=== PATIENT | male | born 1965 | race Hispanic/Latino ===

== ENCOUNTER 2018-11-29 11:18 | Inpatient (IN) | payer MEDICARE ==
[2018-11-29] MEDS ORDERED: ROBAXIN PO PRN (12:14)
[2018-11-29] MEDS ORDERED: VISTARIL IM PRN (12:14)
[2018-11-29] MEDS ORDERED: VISTARIL PO PRN (12:14)
[2018-11-29] MEDS ORDERED: ZOFRAN ODT PO PRN (12:14)
[2018-11-29] MEDS ORDERED: IBUPROFEN PO PRN (12:14)
[2018-11-29] MEDS ORDERED: REQUIP PO PRN (12:14)
[2018-11-29] MEDS ORDERED: SENOKOT PO PRN (12:14)
[2018-11-29] MEDS ORDERED: IMODIUM PO PRN (12:14)
[2018-11-29] MEDS ORDERED: DULCOLAX PR PRN (12:14)
[2018-11-29] MEDS ORDERED: TYLENOL PO PRN (12:14)
[2018-11-29] MEDS ORDERED: ALUM-MAG HYDROX-SIMETH 200-200-20MG/5ML PO PRN (12:14)
[2018-11-29] MEDS ORDERED: HABITROL TD PRN (12:14)
[2018-11-29] MEDS ORDERED: ATIVAN IV PRN (12:14)
[2018-11-29] MEDS ORDERED: ZOFRAN IV PRN (12:14)
[2018-11-29] MEDS ORDERED: INFUVITE IV ONE (12:51)
[2018-11-29] MEDS ORDERED: FOLVITE IV ONE (12:51)
[2018-11-29] MEDS ORDERED: LACTATED RINGERS IV ONE (12:51)
[2018-11-29] MEDS: NACL 0.9% 1000 ML 1,000 ML IV SCH (15:40)
[2018-11-29] MEDS: CATAPRES PO SCH ×3 (15:40→23:00)
[2018-11-29] MEDS: ATIVAN PO SCH ×3 (15:40→22:59)
[2018-11-29 15:53] LABS: Hematocrit 44.6 % (35.5-45.6); Hemoglobin 15.5 gm/dl (11.8-15.2); Mean Corpuscular HGB Conc 35 % (32-34); Mean Corpuscular Volume 92 fl (84-94); Platelet Count 113 K/mm3 (140-440); Red Blood Count 4.84 M/mm3 (3.65-5.03); Red Cell Distribution Width 13.6 % (13.2-15.2)
[2018-11-29 16:03] LABS: INR 1.03 (0.87-1.13)
[2018-11-29 16:14] LABS: Albumin 3.9 g/dL (3.9-5); Calcium 8.9 mg/dL (8.4-10.2)
[2018-11-29 16:25] LABS: Bilirubin,Urine NEG (Negative); Blood,Urine NEG (Negative); Color,Urine Yellow (Yellow); Hyaline Casts,Urine 6 /LPF; Mucus,Urine 3+ /HPF; Urobilinogen,Urine < 2.0 mg/dL (<2.0)
[2018-11-29 16:42] LABS: Amphetamine Screen,Urine PRESUMPTIVE NEGATIVE; Benzodiazepines Screen,Urine PRESUMPTIVE NEGATIVE; Opiate Screen,Urine PRESUMPTIVE NEGATIVE
[2018-11-29 18:02] LABS: Cannabinoid Screen,Urine PRESUMPTIVE POSITIVE; Cocaine Screen,Urine PRESUMPTIVE POSITIVE; Methadone Screen,Urine PRESUMPTIVE POSITIVE
[2018-11-29] MEDS: DESYREL PO SCH (22:58)
--- NOTE | 2018-11-30 01:51 | History and Physical Report ---
History of Present Illness Date of examination: 11/29/18 Date of admission: 11/29/18 14:13 Chief complaint: Wants help with Cocaine dependence History of present illness: 52 y/o male comes in for help with cocaine dependence.Patientyelena medrano doing Cocaine regularly for last 20 years Has been doing Gram a day Has been nervous of late and anxious.Wants to stop Cocaine dependence.No chest pain.No palpitations. Past History Past Medical History: other (DVT PN Anticoagulation) Past Surgical History: cholecystectomy, hernia repair Social history: smoking, other (Cocaine dependence) Family history: hypertension Medications and Allergies Allergies Allergy/AdvReac Type Severity Reaction Status Date / Time No Known Allergies Allergy Verified 11/29/18 12:11 Home Medications Medication Instructions Recorded Confirmed Last Taken Type Amoxicillin [Trimox CAP] 500 mg PO BID 11/29/18 11/29/18 11/27/18 10:00 History Gabapentin [Neurontin] 600 mg PO Q8H 11/29/18 11/29/18 11/27/18 21:00 History QUEtiapine [SEROquel] 200 mg PO DAILY 11/29/18 11/29/18 11/27/18 21:00 History Warfarin [Coumadin] 5 mg PO QDAY 11/29/18 11/29/18 11/27/18 21:00 History Active Meds: Active Medications Acetaminophen (Tylenol) 500 mg PO Q4H PRN PRN Reason: Temp > 100.4 Al Hydrox/Mg Hydrox/Simethicone (Alum-Mag Hydrox-Simeth [phone]/5ml) 30 ml PO Q6H PRN PRN Reason: Dyspepsia Bisacodyl (Dulcolax) 10 mg AK QDAY PRN PRN Reason: Bowel Movement Clonidine HCl (Catapres) 0.1 mg PO Q4HR [facility] Last Admin: 11/29/18 23:00 Dose: Not Given Documented by: Folic Acid (Folvite) 1 mg PO QDAY BENNY Hydroxyzine HCl (Vistaril) 50 mg IM Q6H PRN PRN Reason: Breakthrough Anxiety Hydroxyzine Pamoate (Vistaril) 50 mg PO Q6H PRN PRN Reason: Anxiety Mild Sodium Chloride (Nacl 0.9% 1000 Ml) 1,000 mls @ 75 mls/hr IV DIRECT BENNY Last Admin: 11/29/18 15:40 Dose: 75 mls/hr Documented by: Ibuprofen (Motrin) 600 mg PO Q8H PRN PRN Reason: Pain, Mild (1-3) Loperamide HCl (Imodium) 2 mg PO Q8H PRN PRN Reason: Diarrhea Lorazepam (Ativan) 1 mg PO Q4HR [facility] Stop: 11/30/18 10:01 Last Admin: 11/29/18 22:59 Dose: 1 mg Documented by: Lorazepam (Ativan) 2 mg IV PRN PRN PRN Reason: Seizures Lorazepam (Ativan) 1 mg PO Q6HR [facility] Stop: 12/01/18 06:01 Lorazepam (Ativan) 1 mg PO Q8HR [facility] Stop: 12/01/18 22:01 Methocarbamol (Robaxin) 750 mg PO Q6H PRN PRN Reason: Muscle Ache Multivitamins (Theragran Tab) 1 each PO QDAY [facility] Nicotine (Habitrol) 21 mg TD QDAY PRN PRN Reason: Smoking Cessation Ondansetron HCl (Zofran) 4 mg IV Q6H PRN PRN Reason: Moderat/Severe Nausea/Vomiting Ondansetron HCl (Zofran Odt) 4 mg PO Q6H PRN PRN Reason: Mild / Nausea And Vomiting Ropinirole HCl (Requip) 0.5 mg PO Q12H PRN PRN Reason: Restless Legs Senna (Senokot) 17.2 mg PO QHS PRN PRN Reason: Constipation Thiamine HCl (Vitamin B-1) 100 mg PO QDAY [facility] Trazodone HCl (Desyrel) 50 mg PO QHS [facility] Last Admin: 11/29/18 22:58 Dose: 50 mg Documented by: Review of Systems All systems: negative Constitutional: weight loss Ears, nose, mouth and throat: deferred Cardiovascular: palpitations, shortness of breath, no orthopnea Respiratory: no cough, no cough with sputum, no excessive sputum Genitourinary Male: no dysuria, no hematuria Rectal: no pain Musculoskeletal: no neck stiffness, no neck pain, no shooting arm pain, no arm numbness/tingling Integumentary: no rash, no pruritis, no redness, no sores, no wounds, no jaundice Neurological: no head injury, no transient paralysis, no paralysis Psychiatric: anxiety, hypersomnia Endocrine: no cold intolerance, no heat intolerance, no polyphagia Allergic/Immunologic: no urticaria, no allergic rhinitis, no wheezing Exam - Constitutional Vitals: Temp Pulse Resp BP Pulse Ox 98.0 F 58 L 18 79/47 100 11/30/18 00:16 11/29/18 23:00 11/30/18 00:16 11/30/18 00:16 11/29/18 19:18 General appearance: Present: no acute distress, well-nourished - EENT Eyes: Present: PERRL ENT: hearing intact, clear oral mucosa - Neck Neck: Present: supple, normal ROM - Respiratory Respiratory effort: normal Respiratory: bilateral: CTA - Cardiovascular Heart rate: 78 Rhythm: regular Heart Sounds: Present: S1 & S2. Absent: rub, click - Extremities Extremities: no ischemia, pulses intact, pulses symmetrical, No edema Peripheral Pulses: within normal limits - Abdominal General gastrointestinal: Present: soft, non-tender, non-distended, normal bowel sounds Male genitourinary: Present: normal - Integumentary Integumentary: Present: clear, warm, dry - Musculoskeletal Musculoskeletal: gait normal, strength equal bilaterally - Psychiatric Psychiatric: appropriate mood/affect, intact judgment & insight - Neurologic Neurologic: CNII-XII intact, moves all extremities Results - Labs CBC & Chem 7: 11/29/18 15:20 11/29/18 15:20 Labs: Laboratory Last Values WBC 6.2 K/mm3 (4.5-11.0) 11/29/18 15:20 RBC 4.84 M/mm3 (3.65-5.03) 11/29/18 15:20 Hgb 15.5 gm/dl (11.8-15.2) H 11/29/18 15:20 Hct 44.6 % (35.5-45.6) 11/29/18 15:20 MCV 92 fl (84-94) 11/29/18 15:20 MCH 32 pg (28-32) 11/29/18 15:20 MCHC 35 % (32-34) H 11/29/18 15:20 RDW 13.6 % (13.2-15.2) 11/29/18 15:20 Plt Count 113 K/mm3 (140-440) L 11/29/18 15:20 PT 14.1 Sec. (12.2-14.9) 11/29/18 15:20 INR 1.03 (0.87-1.13) 11/29/18 15:20 Sodium 142 mmol/L (137-145) 11/29/18 15:20 Potassium 4.1 mmol/L (3.6-5.0) 11/29/18 15:20 Chloride 103.3 mmol/L (98-107) 11/29/18 15:20 Carbon Dioxide 30 mmol/L (22-30) 11/29/18 15:20 Anion Gap 13 mmol/L 11/29/18 15:20 BUN 16 mg/dL (9-20) 11/29/18 15:20 Creatinine 1.3 mg/dL (0.8-1.5) 11/29/18 15:20 Estimated GFR 58 ml/min 11/29/18 15:20 BUN/Creatinine Ratio 12 % 11/29/18 15:20 Glucose 111 mg/dL (75-100) H 11/29/18 15:20 Calcium 8.9 mg/dL (8.4-10.2) 11/29/18 15:20 Total Bilirubin 0.50 mg/dL (0.1-1.2) 11/29/18 15:20 AST 12 units/L (5-40) 11/29/18 15:20 ALT 17 units/L (7-56) 11/29/18 15:20 Alkaline Phosphatase 64 units/L (35-129) 11/29/18 15:20 Total Protein 6.4 g/dL (6.3-8.2) 11/29/18 15:20 Albumin 3.9 g/dL (3.9-5) 11/29/18 15:20 Albumin/Globulin Ratio 1.6 % 11/29/18 15:20 Amylase 29 units/L (27-131) 11/29/18 15:20 Lipase 21 units/L (13-60) 11/29/18 15:20 Urine Color Yellow (Yellow) 11/29/18 16:02 Urine Turbidity Slightly-cloudy (Clear) 11/29/18 16:02 Urine pH 5.0 (5.0-7.0) 11/29/18 16:02 Ur Specific [place] 1.025 (1.003-1.030) 11/29/18 16:02 Urine Protein 30 mg/dl mg/dL (Negative) 11/29/18 16:02 Urine Glucose (UA) Neg mg/dL (Negative) 11/29/18 16:02 Urine Ketones Neg mg/dL (Negative) 11/29/18 16:02 Urine Blood Neg (Negative) 11/29/18 16:02 Urine Nitrite Neg (Negative) 11/29/18 16:02 Urine Bilirubin Neg (Negative) 11/29/18 16:02 Urine Urobilinogen < 2.0 mg/dL (<2.0) 11/29/18 16:02 Ur Leukocyte Esterase Neg (Negative) 11/29/18 16:02 Urine WBC (Auto) 7.0 /HPF (0.0-6.0) H 11/29/18 16:02 Urine RBC (Auto) 2.0 /HPF (0.0-6.0) 11/29/18 16:02 U Epithel Cells (Auto) < 1.0 /HPF (0-13.0) 11/29/18 16:02 Hyaline Casts 6 /LPF 11/29/18 16:02 Urine Mucus 3+ /HPF 11/29/18 16:02 Urine Opiates Screen Presumptive negative 11/29/18 15:50 Urine Methadone Screen Presumptive positive 11/29/18 15:50 Ur Barbiturates Screen Presumptive negative 11/29/18 15:50 Ur Phencyclidine Scrn Presumptive negative 11/29/18 15:50 Ur Amphetamines Screen Presumptive negative 11/29/18 15:50 U Benzodiazepines Scrn Presumptive negative 11/29/18 15:50 Urine Cocaine Screen Presumptive positive 11/29/18 15:50 U Marijuana (THC) Screen Presumptive positive 11/29/18 15:50 Drugs of Abuse Note Disclamer 11/29/18 15:50 Plasma/Serum Alcohol < 0.01 % (0-0.07) 11/29/18 15:20 Short CBC 11/29/18 Range/Units 15:20 WBC 6.2 (4.5-11.0) K/mm3 Hgb 15.5 H (11.8-15.2) gm/dl Hct 44.6 (35.5-45.6) % Plt Count 113 L (140-440) K/mm3 BMP 11/29/18 15:20 Sodium 142 Potassium 4.1 Chloride 103.3 Carbon Dioxide 30 BUN 16 Creatinine 1.3 Glucose 111 H Calcium 8.9 Liver Function 11/29/18 Range/Units 15:20 Total Bilirubin 0.50 (0.1-1.2) mg/dL AST 12 (5-40) units/L ALT 17 (7-56) units/L Alkaline Phosphatase 64 (35-129) units/L Albumin 3.9 (3.9-5) g/dL Urine 11/29/18 Range/Units 16:02 Urine Color Yellow (Yellow) Urine pH 5.0 (5.0-7.0) Ur Specific [place] 1.025 (1.003-1.030) Urine Protein 30 mg/dl (Negative) mg/dL Urine Glucose (UA) Neg (Negative) mg/dL Assessment and Plan Advance Directives: Yes (Full code) VTE prophylaxis?: Chemical Plan of care discussed with patient/family: Yes - Patient Problems (1) Cocaine dependence Current Visit: Yes Status: Chronic Qualifiers: Substance use status: in withdrawal Qualified Code(s): F14.23 - Cocaine dependence with withdrawal Plan to address problem: Patient initiated on Cocaine dependence Med Stabilization orders including Lo razepm taper from 1 mg po q4 on day 1 then Q6 on day 2 and then q8 on day 3 (2) Bipolar 1 disorder Current Visit: Yes Status: Chronic Plan to address problem: Cont Seroquel (3) Peripheral neuropathy Current Visit: Yes Status: Chronic Qualifiers: Peripheral neuropathy type: polyneuropathy, unspecified Qualified Code(s): G62.9 - Polyneuropathy, unspecified Plan to address problem: Cont Gabapentin (4) Anticoagulant long-term use Current Visit: Yes Status: Chronic Plan to address problem: Patient uses Coumadin for DVT from long duration ago.Coumadin maybe stopped.COumadin not resumed (5) DVT prophylaxis Current Visit: Yes Status: Acute Plan to address problem: On Lovenox and GI prophylaxis
[2018-11-30] MEDS: ATIVAN PO SCH ×5 (02:58→23:11)
[2018-11-30] MEDS: CATAPRES PO SCH ×6 (03:01→21:32)
[2018-11-30] MEDS: NACL 0.9% 1000 ML 1,000 ML IV SCH (05:56)
[2018-11-30] MEDS ORDERED: NON-FORMULARY (Gabapentin [Neurontin] 600 MG) PO SCH (06:00)
[2018-11-30] MEDS: FOLVITE PO SCH (09:08)
[2018-11-30] MEDS: VITAMIN B-1 PO SCH (09:08)
[2018-11-30] MEDS: PEPCID PO SCH ×2 (09:08→21:32)
[2018-11-30] MEDS: THERAGRAN Tab PO SCH (09:08)
--- NOTE | 2018-11-30 09:42 | Progress Note ---
Assessment and Plan Assessment and plan: 52 year male with hx of cocain dependance for 20 years, doing about a gram a day. UDS was indicative of Cocain, THC and Opioids. He is currently enrolled on the [facility] protocol for management. (1) Cocaine dependence Current Visit: Yes Status: Chronic Qualifiers: Substance use status: in withdrawal Qualified Code(s): F14.23 - Cocaine dependence with withdrawal Plan to address problem: Patient initiated on Cocaine dependence Med Stabilization orders including Lorazepm taper from 1 mg po q4 on day 1 then Q6 on day 2 and then q8 on day 3 Method travel likely secondary to mild withdrawal will continue to monitor. (2) Bipolar 1 disorder Current Visit: Yes Status: Chronic Plan to address problem: Cont Seroquel (3) Peripheral neuropathy Current Visit: Yes Status: Chronic Qualifiers: Peripheral neuropathy type: polyneuropathy, unspecified Qualified Code(s): G62.9 - Polyneuropathy, unspecified Plan to address problem: Cont Gabapentin (4) Anticoagulant long-term use Current Visit: Yes Status: Chronic Plan to address problem: Patient uses Coumadin for DVT from long duration ago.Coumadin maybe stopped. COumadin not resumed (5) DVT prophylaxis Current Visit: Yes Status: Acute Plan to address problem: On Lovenox and GI prophylaxis History Interval history: Patient is examined this morning resting comfortably in no acute distress, still some shaking with diaphoresis of daily improving. Hospitalist Physical - Physical exam Narrative exam: VITAL SIGNS: Reviewed. GENERAL: The patient appeared well nourished and normally developed. Vital signs as documented. HEAD: No signs of head trauma. EYES: Pupils are equal. Extraocular motions intact. EARS: Hearing grossly intact. MOUTH: Oropharynx is normal. NECK: No adenopathy, no JVD. CHEST: Chest with clear breath sounds bilaterally. No wheezes, rales, or rhonchi. CARDIAC: Regular rate and rhythm. S1 and S2, without murmurs, gallops, or rubs. VASCULAR: No Edema. Peripheral pulses normal and equal in all extremities. ABDOMEN: Soft, without detectable tenderness. No sign of distention. No rebound or guarding, and no masses palpated. Bowel Sounds normal. MUSCULOSKELETAL: Good range of motion of all major joints. Extremities without clubbing, cyanosis or edema. NEUROLOGIC EXAM: Alert and oriented x 3. No focal sensory or strength deficits . Speech normal. Follows commands. PSYCHIATRIC: Mood normal. There was some mild tremors. SKIN: No rash or lesions. - Constitutional Vitals: Temp Pulse Resp BP Pulse Ox 97.4 F L 58 L 18 101/64 98 11/30/18 08:01 11/30/18 09:09 11/30/18 08:01 11/30/18 09:09 11/30/18 08:01 General appearance: Present: no acute distress, well-nourished Results - Labs CBC & Chem 7: 11/29/18 15:20 11/29/18 15:20 Labs: Laboratory Last Values WBC 6.2 K/mm3 (4.5-11.0) 11/29/18 15:20 RBC 4.84 M/mm3 (3.65-5.03) 11/29/18 15:20 Hgb 15.5 gm/dl (11.8-15.2) H 11/29/18 15:20 Hct 44.6 % (35.5-45.6) 11/29/18 15:20 MCV 92 fl (84-94) 11/29/18 15:20 MCH 32 pg (28-32) 11/29/18 15:20 MCHC 35 % (32-34) H 11/29/18 15:20 RDW 13.6 % (13.2-15.2) 11/29/18 15:20 Plt Count 113 K/mm3 (140-440) L 11/29/18 15:20 PT 14.1 Sec. (12.2-14.9) 11/29/18 15:20 INR 1.03 (0.87-1.13) 11/29/18 15:20 Sodium 142 mmol/L (137-145) 11/29/18 15:20 Potassium 4.1 mmol/L (3.6-5.0) 11/29/18 15:20 Chloride 103.3 mmol/L (98-107) 11/29/18 15:20 Carbon Dioxide 30 mmol/L (22-30) 11/29/18 15:20 Anion Gap 13 mmol/L 11/29/18 15:20 BUN 16 mg/dL (9-20) 11/29/18 15:20 Creatinine 1.3 mg/dL (0.8-1.5) 11/29/18 15:20 Estimated GFR 58 ml/min 11/29/18 15:20 BUN/Creatinine Ratio 12 % 11/29/18 15:20 Glucose 111 mg/dL (75-100) H 11/29/18 15:20 Calcium 8.9 mg/dL (8.4-10.2) 11/29/18 15:20 Total Bilirubin 0.50 mg/dL (0.1-1.2) 11/29/18 15:20 AST 12 units/L (5-40) 11/29/18 15:20 ALT 17 units/L (7-56) 11/29/18 15:20 Alkaline Phosphatase 64 units/L (35-129) 11/29/18 15:20 Total Protein 6.4 g/dL (6.3-8.2) 11/29/18 15:20 Albumin 3.9 g/dL (3.9-5) 11/29/18 15:20 Albumin/Globulin Ratio 1.6 % 11/29/18 15:20 Amylase 29 units/L (27-131) 11/29/18 15:20 Lipase 21 units/L (13-60) 11/29/18 15:20 Urine Color Yellow (Yellow) 11/29/18 16:02 Urine Turbidity Slightly-cloudy (Clear) 11/29/18 16:02 Urine pH 5.0 (5.0-7.0) 11/29/18 16:02 Ur Specific [place] 1.025 (1.003-1.030) 11/29/18 16:02 Urine Protein 30 mg/dl mg/dL (Negative) 11/29/18 16:02 Urine Glucose (UA) Neg mg/dL (Negative) 11/29/18 16:02 Urine Ketones Neg mg/dL (Negative) 11/29/18 16:02 Urine Blood Neg (Negative) 11/29/18 16:02 Urine Nitrite Neg (Negative) 11/29/18 16:02 Urine Bilirubin Neg (Negative) 11/29/18 16:02 Urine Urobilinogen < 2.0 mg/dL (<2.0) 11/29/18 16:02 Ur Leukocyte Esterase Neg (Negative) 11/29/18 16:02 Urine WBC (Auto) 7.0 /HPF (0.0-6.0) H 11/29/18 16:02 Urine RBC (Auto) 2.0 /HPF (0.0-6.0) 11/29/18 16:02 U Epithel Cells (Auto) < 1.0 /HPF (0-13.0) 11/29/18 16:02 Hyaline Casts 6 /LPF 11/29/18 16:02 Urine Mucus 3+ /HPF 11/29/18 16:02 Urine Opiates Screen Presumptive negative 11/29/18 15:50 Urine Methadone Screen Presumptive positive 11/29/18 15:50 Ur Barbiturates Screen Presumptive negative 11/29/18 15:50 Ur Phencyclidine Scrn Presumptive negative 11/29/18 15:50 Ur Amphetamines Screen Presumptive negative 11/29/18 15:50 U Benzodiazepines Scrn Presumptive negative 11/29/18 15:50 Urine Cocaine Screen Presumptive positive 11/29/18 15:50 U Marijuana (THC) Screen Presumptive positive 11/29/18 15:50 Drugs of Abuse Note Disclamer 11/29/18 15:50 Plasma/Serum Alcohol < 0.01 % (0-0.07) 11/29/18 15:20
[2018-11-30] MEDS: NEURONTIN PO SCH ×2 (13:46→21:32)
[2018-11-30] MEDS: DESYREL PO SCH (21:31)
[2018-11-30] MEDS: LOVENOX SUB-Q SCH (21:32)
[2018-12-01] MEDS: CATAPRES PO SCH ×5 (02:50→18:22)
[2018-12-01] MEDS: NEURONTIN PO SCH ×3 (06:25→23:23)
[2018-12-01] MEDS: ATIVAN PO SCH ×5 (06:26→23:23)
[2018-12-01] MEDS: THERAGRAN Tab PO SCH (09:23)
[2018-12-01] MEDS: VITAMIN B-1 PO SCH (09:23)
[2018-12-01] MEDS: PEPCID PO SCH ×2 (09:23→23:25)
[2018-12-01] MEDS: FOLVITE PO SCH (09:23)
--- NOTE | 2018-12-01 18:02 | Progress Note ---
Assessment and Plan Assessment and plan: 52 year male with hx of cocain dependance for 20 years, doing about a gram a day. UDS was indicative of Cocain, THC and Opioids. He is currently enrolled on the [facility] protocol for management. (1) Cocaine dependence Current Visit: Yes Status: Chronic Qualifiers: Substance use status: in withdrawal Qualified Code(s): F14.23 - Cocaine dependence with withdrawal Plan to address problem: Patient initiated on Cocaine dependence Med Stabilization orders including Lorazepm taper from 1 mg po q4 on day 1 then Q6 on day 2 and then q8 on day 3 Method travel likely secondary to mild withdrawal will continue to monitor. (2) Bipolar 1 disorder Current Visit: Yes Status: Chronic Plan to address problem: Cont Seroquel (3) Peripheral neuropathy Current Visit: Yes Status: Chronic Qualifiers: Peripheral neuropathy type: polyneuropathy, unspecified Qualified Code(s): G62.9 - Polyneuropathy, unspecified Plan to address problem: Cont Gabapentin (4) Anticoagulant long-term use Current Visit: Yes Status: Chronic Plan to address problem: Patient uses Coumadin for DVT from long duration ago.Coumadin maybe stopped. COumadin not resumed (5) DVT prophylaxis Current Visit: Yes Status: Acute Plan to address problem: On Lovenox and GI prophylaxis ANTICIPATE DISCHARGE TOMORROW History Interval history: Patient is examined this morning resting comfortably in no acute distress, still some shaking with diaphoresis of daily improving. Hospitalist Physical - Physical exam Narrative exam: VITAL SIGNS: Reviewed. GENERAL: The patient appeared well nourished and normally developed. Vital signs as documented. HEAD: No signs of head trauma. EYES: Pupils are equal. Extraocular motions intact. EARS: Hearing grossly intact. MOUTH: Oropharynx is normal. NECK: No adenopathy, no JVD. CHEST: Chest with clear breath sounds bilaterally. No wheezes, rales, or rhonchi. CARDIAC: Regular rate and rhythm. S1 and S2, without murmurs, gallops, or rubs. VASCULAR: No Edema. Peripheral pulses normal and equal in all extremities. ABDOMEN: Soft, without detectable tenderness. No sign of distention. No rebound or guarding, and no masses palpated. Bowel Sounds normal. MUSCULOSKELETAL: Good range of motion of all major joints. Extremities without clubbing, cyanosis or edema. NEUROLOGIC EXAM: Alert and oriented x 3. No focal sensory or strength deficits. Speech normal. Follows commands. PSYCHIATRIC: Mood normal. There was some mild tremors. SKIN: No rash or lesions. - Constitutional Vitals: Temp Pulse Resp BP Pulse Ox 98.0 F 88 20 122/74 97 12/01/18 17:21 12/01/18 17:21 12/01/18 17:21 12/01/18 17:21 12/01/18 17:21 General appearance: Present: no acute distress, well-nourished Results - Labs CBC & Chem 7: 11/29/18 15:20 11/29/18 15:20 Labs: Laboratory Last Values WBC 6.2 K/mm3 (4.5-11.0) 11/29/18 15:20 RBC 4.84 M/mm3 (3.65-5.03) 11/29/18 15:20 Hgb 15.5 gm/dl (11.8-15.2) H 11/29/18 15:20 Hct 44.6 % (35.5-45.6) 11/29/18 15:20 MCV 92 fl (84-94) 11/29/18 15:20 MCH 32 pg (28-32) 11/29/18 15:20 MCHC 35 % (32-34) H 11/29/18 15:20 RDW 13.6 % (13.2-15.2) 11/29/18 15:20 Plt Count 113 K/mm3 (140-440) L 11/29/18 15:20 PT 14.1 Sec. (12.2-14.9) 11/29/18 15:20 INR 1.03 (0.87-1.13) 11/29/18 15:20 Sodium 142 mmol/L (137-145) 11/29/18 15:20 Potassium 4.1 mmol/L (3.6-5.0) 11/29/18 15:20 Chloride 103.3 mmol/L (98-107) 11/29/18 15:20 Carbon Dioxide 30 mmol/L (22-30) 11/29/18 15:20 Anion Gap 13 mmol/L 11/29/18 15:20 BUN 16 mg/dL (9-20) 11/29/18 15:20 Creatinine 1.3 mg/dL (0.8-1.5) 11/29/18 15:20 Estimated GFR 58 ml/min 11/29/18 15:20 BUN/Creatinine Ratio 12 % 11/29/18 15:20 Glucose 111 mg/dL (75-100) H 11/29/18 15:20 Calcium 8.9 mg/dL (8.4-10.2) 11/29/18 15:20 Total Bilirubin 0.50 mg/dL (0.1-1.2) 11/29/18 15:20 AST 12 units/L (5-40) 11/29/18 15:20 ALT 17 units/L (7-56) 11/29/18 15:20 Alkaline Phosphatase 64 units/L (35-129) 11/29/18 15:20 Total Protein 6.4 g/dL (6.3-8.2) 11/29/18 15:20 Albumin 3.9 g/dL (3.9-5) 11/29/18 15:20 Albumin/Globulin Ratio 1.6 % 11/29/18 15:20 Amylase 29 units/L (27-131) 11/29/18 15:20 Lipase 21 units/L (13-60) 11/29/18 15:20 Urine Color Yellow (Yellow) 11/29/18 16:02 Urine Turbidity Slightly-cloudy (Clear) 11/29/18 16:02 Urine pH 5.0 (5.0-7.0) 11/29/18 16:02 Ur Specific [place] 1.025 (1.003-1.030) 11/29/18 16:02 Urine Protein 30 mg/dl mg/dL (Negative) 11/29/18 16:02 Urine Glucose (UA) Neg mg/dL (Negative) 11/29/18 16:02 Urine Ketones Neg mg/dL (Negative) 11/29/18 16:02 Urine Blood Neg (Negative) 11/29/18 16:02 Urine Nitrite Neg (Negative) 11/29/18 16:02 Urine Bilirubin Neg (Negative) 11/29/18 16:02 Urine Urobilinogen < 2.0 mg/dL (<2.0) 11/29/18 16:02 Ur Leukocyte Esterase Neg (Negative) 11/29/18 16:02 Urine WBC (Auto) 7.0 /HPF (0.0-6.0) H 11/29/18 16:02 Urine RBC (Auto) 2.0 /HPF (0.0-6.0) 11/29/18 16:02 U Epithel Cells (Auto) < 1.0 /HPF (0-13.0) 11/29/18 16:02 Hyaline Casts 6 /LPF 11/29/18 16:02 Urine Mucus 3+ /HPF 11/29/18 16:02 Urine Opiates Screen Presumptive negative 11/29/18 15:50 Urine Methadone Screen Presumptive positive 11/29/18 15:50 Ur Barbiturates Screen Presumptive negative 11/29/18 15:50 Ur Phencyclidine Scrn Presumptive negative 11/29/18 15:50 Ur Amphetamines Screen Presumptive negative 11/29/18 15:50 U Benzodiazepines Scrn Presumptive negative 11/29/18 15:50 Urine Cocaine Screen Presumptive positive 11/29/18 15:50 U Marijuana (THC) Screen Presumptive positive 11/29/18 15:50 Drugs of Abuse Note Disclamer 11/29/18 15:50 Plasma/Serum Alcohol < 0.01 % (0-0.07) 11/29/18 15:20
[2018-12-01] MEDS: DESYREL PO SCH (23:24)
[2018-12-01] MEDS: LOVENOX SUB-Q SCH (23:25)
[2018-12-02] MEDS: NEURONTIN PO SCH ×2 (00:05→08:03)
[2018-12-02] MEDS: CATAPRES PO SCH ×2 (00:07→10:28)
[2018-12-02 07:52] VITALS: BP 116/74
[2018-12-02] MEDS: ATIVAN PO SCH (08:05)
--- NOTE | 2018-12-02 10:13 | Discharge Summary ---
Providers - Providers Date of Admission: 11/29/18 14:13 Attending physician: ELLA BASILIO MD 12/01/18 11:52 psychiatry consult [Consult to Mental Health] [CONS] Urgent Reason For Exam: patient desires [place] placement Place consult to:: Psych Notified:: Dennise Was contact made?: Yes If yes, spoke with:: Dennise Time called:: 11:50 Primary care physician: [employer]UC[employer] Hospitalization Reason for admission: susbtance abuse Hospital course: 52 year male with hx of cocain dependance for 20 years, doing about a gram a day. UDS was indicative of Cocain, THC and Opioids. He is currently enrolled on the [facility] protocol for management. (1) Cocaine dependence Current Visit: Yes Status: Chronic Qualifiers: Substance use status: in withdrawal Qualified Code(s): F14.23 - Cocaine dependence with withdrawal Plan to address problem: Patient initiated on Cocaine dependence Med Stabilization orders including Lorazepm taper from 1 mg po q4 on day 1 then Q6 on day 2 and then q8 on day 3 Patient improved with notable resolution of symptoms On admission the patient was recommended to follow with the [facility] discharge plan arranged for him (2) Bipolar 1 disorder Current Visit: Yes Status: Chronic Plan to address problem: Cont Seroquel (3) Peripheral neuropathy Current Visit: Yes Status: Chronic Qualifiers: Peripheral neuropathy type: polyneuropathy, unspecified Qualified Code(s): G62.9 - Polyneuropathy, unspecified Plan to address problem: Cont Gabapentin (4) Anticoagulant long-term use Current Visit: Yes Status: Chronic Plan to address problem: Patient uses Coumadin for DVT from long duration ago.Coumadin maybe stopped. He was advised on this and will follow with his doctor for further advise. Disposition: DC-01 TO HOME OR SELFCARE Time spent for discharge: 35 mins Core Measure Documentation - Palliative Care Palliative Care/ Comfort Measures: Not Applicable - Core Measures Any of the following diagnoses?: none Exam - Constitutional Vitals: Temp Pulse Resp BP Pulse Ox 97.9 F 78 20 116/74 99 12/02/18 07:39 12/02/18 07:39 12/02/18 07:39 12/02/18 07:39 12/02/18 07:39 Plan Activity: advance as tolerated, fall precautions Diet: low fat Special Instructions: record daily weights Additional Instructions: follow up discharge plan as outlined by [facility] Follow up with: PRIMARY CARE, [Primary Care Provider] - 7 Days
[2018-12-02] MEDS: VITAMIN B-1 PO SCH (10:27)
[2018-12-02] MEDS: PEPCID PO SCH (10:27)
[2018-12-02] MEDS: FOLVITE PO SCH (10:27)
[2018-12-02] MEDS: THERAGRAN Tab PO SCH (10:27)
== END 2018-12-02 11:45 | disposition home or self-care (01) | DRG 897 ==
LOC: UNDOADMIN 11:18 → 2B-ACE 11:18 → MSU 14:13
PROVIDERS: ADMIT Internal Medicine; ATTEND Internal Medicine
DX: F14.23 Cocaine dependence with withdrawal (principal); G62.9 Polyneuropathy, unspecified; F31.9 Bipolar disorder, unspecified; Z90.49 Acquired absence of other specified parts of digestive tract; Z82.49 Family history of ischemic heart disease and other diseases of the circulatory system; Z79.01 Long term (current) use of anticoagulants
CPT/HCPCS: 36415; 80053; 80307; 80320; 81001; 82150; 83690; 85027; 85610; 87116; 93005; 93010; 99406; G0378; G0480; J1650; J3410; J3411; J7030; Q0177